=== PATIENT | female | born 1980 | race Caucasian/White ===

== ENCOUNTER 2019-07-12 06:47 | Emergency (ER) | payer SELFPAY ==
[2019-07-12] MEDS ORDERED: SODIUM CHLORIDE 0.9% 1000ML 1,000 ML IVS ONE (06:56)
[2019-07-12] MEDS ORDERED: PROMETHAZINE HCL INJ 25 MG in SODIUM CHLORIDE 0.9% 50ML 50 ML IVPB ONE (06:56)
[2019-07-12] MEDS ORDERED: ALUM & MAG HYDROX-SIMETHICONE 30 ML, LIDOCAINE VISCOUS 2% 15 ML PO ONE ×2 (06:56)
[2019-07-12] MEDS ORDERED: LIDOCAINE HCL 2% (MOUTH-THROAT) 15 ML UD ONE (06:58)
[2019-07-12] MEDS ORDERED: SODIUM CHLORIDE 0.9% 50ML 50 ML ONE (06:58)
[2019-07-12] MEDS ORDERED: PROMETHAZINE HCL INJ 25 MG/ML VIAL ONE (06:58)
[2019-07-12] MEDS ORDERED: ALUM & MAG HYDROX-SIMETHICONE 30 ML UD ONE (06:58)
--- NOTE | 2019-07-12 06:59 | ED.PDOC ---
History of Present Illness - General Source: patient Exam Limitations: no limitations - History of Present Illness Initial Comments: 2 days nv and ruq pain, hx of gb problems in the past. no fever. no blood in vomit. possible bile. no urinary symptoms. Timing/Duration: other Severity: moderate Improving Factors: nothing Worsening Factors: eating Associated Symptoms: loss of appetite, malaise, nausea/vomiting <Tan Norton - Last Filed: 07/12/19 06:56> <Basilio Quevedo - Last Filed: 07/12/19 10:58> - General Chief Complaint: Abdominal Pain Stated Complaint: Possible ruptured gallbladder Time Seen by Provider: 07/12/19 06:54 - History of Present Illness Allergies/Adverse Reactions: Allergies NSAIDs Allergy (Verified 07/12/19 06:54) Home Medications: Ambulatory Orders Prednisone [Deltasone] 20 mg PO Q24HR #5 tab 03/31/16 Review of Systems - Review of Systems Constitutional: States: malaise EENTM: States: no symptoms reported Respiratory: States: no symptoms reported Cardiology: States: no symptoms reported Gastrointestinal/Abdominal: States: abdominal pain, nausea, vomiting Genitourinary: States: no symptoms reported Musculoskeletal: States: no symptoms reported Skin: States: no symptoms reported Neurological: States: no symptoms reported Endocrine: States: no symptoms reported All other Systems: No Change from Baseline <Tan Norton - Last Filed: 07/12/19 06:56> Past Medical History (General) - Patient Medical History Hx Seizures: No Hx Stroke: No Hx Dementia: No Hx Asthma: No Hx of COPD: No Hx Cardiac Disorders: No Hx Congestive Heart Failure: No Hx Pacemaker: No Hx Hypertension: No Hx Thyroid Disease: No Hx Diabetes: No Hx Gastroesophageal Reflux: No Hx Renal Disease: No Hx Cancer: No Hx of HIV: No Hx Hepatitis C: No Hx MRSA: No - Vaccination History Hx Tetanus, Diphtheria Vaccination: Yes Hx Influenza Vaccination: No Hx Pneumococcal Vaccination: Yes - Social History Hx Tobacco Use: Yes Hx Alcohol Use: No Hx Substance Use: No Hx Substance Use Treatment: No Hx Depression: No - Female History Patient : No <Tan Norton - Last Filed: 07/12/19 06:56> Family Medical History - Family History Mother Family History: No Known <Tan Norton - Last Filed: 07/12/19 06:56> Physical Exam - Physical Exam General Appearance: Alert, No apparent distress Eye Exam: bilateral normal Ears, Nose, Throat: hearing grossly normal, normal ENT inspection Neck: full range of motion, supple Respiratory: lungs clear, normal breath sounds, no respiratory distress, no accessory muscle use Cardiovascular/Chest: normal peripheral pulses, regular rate, rhythm, no edema Peripheral Pulses: radial,right: 2+, radial,left: 2+ Gastrointestinal/Abdominal: soft, other - obese, ruq discomfort to palp Rectal Exam: deferred Back Exam: no CVA tenderness, no vertebral tenderness Extremity: normal range of motion, non-tender, normal inspection, no pedal edema, normal capillary refill Neurologic: access specialist II-XII nml as tested, alert, normal mood/affect, oriented x 3 Skin Exam: normal color <Errol,Tan L - Last Filed: 07/12/19 06:56> Progress - Progress Progress: DDx: Cholelithiasis, Cholecystitis, Biliary colic, Pancreatitis, Colitis, SBO, Pneumonia Patient presented with RUQ pain. Lab work was not suggestive of acute cholecystitis, pancreatitis, or hepatitis. Symptoms were not suggestive of GERD. Acute abdominal series was not significant for focal pneumonia or signs of SBO. RUQ ultrasound was significant for gallbladder wall thickening and gallstones. Dr. Sales was consulted due to patient's issues with pain control. After evaluation by Dr. Sales, plan was made for transfer to OR for cholecystectomy. 07/12/19 07:30 Introduced myself to patient and assumed care at 0700. Morphine ordered for pain. Pending ultrasound. 07/12/19 09:00 Discussed patient's ultrasound with Dr. Sales with general surgery. Will evaluate patient. Patient given 100mcg Fentanyl for persistent pain. 07/12/19 10:[address] Sales. Discussion for surgery. Will likely plan to proceed to OR. Will plan for admission pending OR schedule. 07/12/19 10:56 - Results/Orders Results/Orders: XR Abdomen: No air fluid levels. non-specific bowel gas pattern US RUQ: FINDINGS: Pancreas: Visualized portions of the pancreas are unremarkable. Bowel gas obscures some areas. Aorta/inferior vena cava: No aortic aneurysm. Normal inferior vena cava. Liver: The liver is coarse in texture with increased echogenicity consistent with diffuse hepatic steatosis. Liver length of 17.7 cm is near the upper limit of normal No focal liver lesion or intrahepatic bile duct dilatation. No liver surface irregularity. Normal garcia scale appearance of the portal vein and hepatic veins. No color flow obtainable in the main portal vein which may be technical. Gallbladder: Gallbladder appears normal in size with shadowing stones in the lumen. These appear to be freely mobile. One stone measures 1.9 cm. The others are smaller. The gallbladder wall is thickened 3.7 mm. Sonographic Charles sign was not recorded. For clinically equivocal cases, radionuclide hepatobiliary scan may be helpful. Common bile duct: Normal caliber measuring 5.8 mm. Right kidney: Renal length is 11.2 cm. Normal cortical echogenicity. Cortical thickness is normal. No hydronephrosis is seen. No renal mass or shadowing calculus. IMPRESSION: Gallstones with gallbladder wall thickening. Hyperechoic liver consistent with diffuse hepatic steatosis. 07/12/19 07:04 BLOOD CULTURE Stat Laboratory Results WBC 8.7 K/mm3 (4.8-10.8) 07/12/19 06:58 RBC 4.38 M/mm3 (4.20-5.40) 07/12/19 06:58 Hgb 13.3 gm/dL (12.0-16.0) 07/12/19 06:58 Hct 39.4 % (36.0-47.0) 07/12/19 06:58 MCV 89.8 fl (81.0-99.0) 07/12/19 06:58 MCH 30.4 pg (27.0-31.0) 07/12/19 06:58 MCHC 33.9 g/dL (33.0-37.0) 07/12/19 06:58 RDW 14.1 % (11.5-14.5) 07/12/19 06:58 Plt Count 414 K/mm3 (130-400) H 07/12/19 06:58 MPV 7.8 fl (7.40-10.4) 07/12/19 06:58 Absolute Neuts (auto) 6.20 K/uL (1.8-6.8) 07/12/19 06:58 Absolute Lymphs (auto) 1.80 K/uL (1.0-3.4) 07/12/19 06:58 Absolute Monos (auto) 0.50 K/uL (0.2-0.8) 07/12/19 06:58 Absolute Eos (auto) 0.20 K/uL (0.0-0.4) 07/12/19 06:58 Absolute Basos (auto) 0.10 K/uL (0.0-0.1) 07/12/19 06:58 Neutrophils % 70.5 % (42.0-78.0) 07/12/19 06:58 Lymphocytes % 20.7 % (20.0-50.0) 07/12/19 06:58 Monocytes % 5.5 % (2.0-9.0) 07/12/19 06:58 Eosinophils % 1.9 % (1.0-5.0) 07/12/19 06:58 Basophils % 1.4 % (0.0-2.0) 07/12/19 06:58 Sodium 136 mmol/L (135-145) 07/12/19 06:58 Potassium 3.8 mmol/L (3.6-5.0) 07/12/19 06:58 Chloride 99 mmol/L (101-111) L 07/12/19 06:58 Carbon Dioxide 24 mmol/L (21-31) 07/12/19 06:58 Anion Gap 16.8 (12-18) 07/12/19 06:58 BUN 7 mg/dL (7-18) 07/12/19 06:58 Creatinine 0.61 mg/dL (0.6-1.3) 07/12/19 06:58 BUN/Creatinine Ratio 11.5 (10-20) 07/12/19 06:58 Random Glucose 149 mg/dL (70-105) H 07/12/19 06:58 Serum Osmolality 272.7 mOsm/L (275-295) L 07/12/19 06:58 Lactic Acid 1.5 mmol/L (0.5-2.2) 07/12/19 06:58 Calcium 9.3 mg/dL (8.4-10.2) 07/12/19 06:58 Total Bilirubin 0.8 mg/dL (0.2-1.0) 07/12/19 06:58 AST 22 IU/L (10-42) 07/12/19 06:58 ALT 24 IU/L (10-60) 07/12/19 06:58 Alkaline Phosphatase 78 IU/L (42-121) 07/12/19 06:58 Serum Total Protein 7.8 gm/dL (6.4-8.2) 07/12/19 06:58 Albumin 3.6 g/dl (3.2-5.5) 07/12/19 06:58 Globulin 4.2 gm/dL (2.3-3.5) H 07/12/19 06:58 Albumin/Globulin Ratio 0.9 (1.1-1.9) L 07/12/19 06:58 Amylase 29 U/L (28-100) 07/12/19 06:58 Lipase 26 U/L (22-51) 07/12/19 06:58 Urine Color Yellow (Yellow) 07/12/19 08:35 Urine Appearance Clear (Clear) 07/12/19 08:35 Urine pH 7.0 (4.5-7.8) 07/12/19 08:35 Ur Specific [place] 1.010 (1.005-1.030) 07/12/19 08:35 Urine Protein Negative mg/dL 07/12/19 08:35 Urine Glucose (UA) Negative mg/dL (Negative) 07/12/19 08:35 Urine Ketones Negative mg/dL (NEGATIVE) 07/12/19 08:35 Urine Blood Negative (Negative) 07/12/19 08:35 Urine Nitrite Negative 07/12/19 08:35 Urine Bilirubin Negative (NEGATIVE) 07/12/19 08:35 Urine Urobilinogen 0.2 mg/dL (0.2-1.0) 07/12/19 08:35 Ur Leukocyte Esterase Negative (Negative) 07/12/19 08:35 Urine RBC 0 /hpf 07/12/19 08:35 Urine WBC 0 /hpf 07/12/19 08:35 Ur Epithelial Cells 1-3 /hpf 07/12/19 08:35 Urine Bacteria 0 07/12/19 08:35 Urine HCG, Qual Negative (NEGATIVE) 07/12/19 08:35 <Basilio Quevedo - Last Filed: 07/12/19 10:58> Departure <Tan Norton - Last Filed: 07/12/19 06:56> - Departure Time of Disposition: 10:56 Comments: Basilio Quevedo D.O. [id number] <Basilio Quevedo - Last Filed: 07/12/19 10:58> - Departure Clinical Impression: Cholelithiasis, Thickening of wall of gallbladder Abdominal pain Qualifiers: Abdominal location: right upper quadrant Qualified Code(s): R10.11 - Right upper quadrant pain Disposition: Admit Patient Condition: Good Departure Forms: ED Discharge - Pt. Copy, Patient Portal Self Enrollment Instructions: DI for Abdominal Pain-Adult Home Medications: Ambulatory Orders Prednisone [Deltasone] 20 mg PO Q24HR #5 tab 03/31/16
[2019-07-12] MEDS ORDERED: METOCLOPRAMIDE HCL INJ 10 MG/2 ML VIAL ONE (07:00)
[2019-07-12] MEDS ORDERED: DEXAMETHASONE INJ 10 MG/ML VIAL ONE (07:00)
[2019-07-12] MEDS ORDERED: ePHEDrine SULF 50 MG/ML ONE (07:00)
[2019-07-12] MEDS ORDERED: raNITIdine HCL INJ 25 MG/ML VIAL ONE (07:00)
[2019-07-12] MEDS ORDERED: ceFAZolin SODIUM 1 GM VIAL ONE (07:00)
[2019-07-12] MEDS ORDERED: PROPOFOL 200 MG/20 ML VIAL IV ONE (07:00)
[2019-07-12] MEDS ORDERED: LIDOCAINE 1% 10 ML VIAL INJ ONE (07:00)
[2019-07-12] MEDS ORDERED: MAGNESIUM SULFATE INJ 1 GM/2 ML VIAL ONE (07:00)
[2019-07-12] MEDS ORDERED: MORPHINE SULFATE INJ 10 MG/ML VIAL IV ONE (07:31)
--- NOTE | 2019-07-12 07:34 | RAD ---
EXAM: X-ray acute abdomen series CLINICAL DATA: 38-year-old female with nausea and vomiting x2 days TECHNICAL DATA: Three x-ray images of the chest and abdomen were performed including a PA radiograph of the chest as well as supine and upright views of the abdomen. This study was performed on 07/12/2019 at 7:01 AM. Comparison: None. FINDINGS: The lungs are well expanded. The cardiac silhouette is within normal limits. There is no focal consolidation, pleural effusion or pneumothorax. The costophrenic sulci are clear. The bowel gas pattern is nonspecific and nonobstructive. There is gaseous distention of several small bowel loops without evidence of bowel dilatation. There are small nondifferential air-fluid levels on the upright projection which may indicate a small bowel ileus and/or gastroenteritis. There is mild air and fecal residue scattered throughout the colon. The psoas margins are preserved. There is no evidence of free intraperitoneal air. No pathologic abdominal calcifications are identified. No focal soft tissue abnormalities are seen. IMPRESSION: 1. No evidence of acute intrathoracic disease.. 2. Gaseous distention of several small bowel loops with nondifferential air-fluid levels on the upright projection. Findings are nonspecific and could be related to a small bowel ileus and/or gastroenteritis. Electronically signed by: Nisha Grimaldo DO 07/12/2019 7:32 AM PROJECT PLANNER
--- NOTE | 2019-07-12 08:41 | US ---
EXAM DESCRIPTION: Abdomen,Limited CLINICAL HISTORY: nv 2 days, hx gb problems COMPARISON: None Available. TECHNIQUE: Right upper quadrant ultrasound FINDINGS: Pancreas: Visualized portions of the pancreas are unremarkable. Bowel gas obscures some areas. Aorta/inferior vena cava: No aortic aneurysm. Normal inferior vena cava. Liver: The liver is coarse in texture with increased echogenicity consistent with diffuse hepatic steatosis. Liver length of 17.7 cm is near the upper limit of normal No focal liver lesion or intrahepatic bile duct dilatation. No liver surface irregularity. Normal garcia scale appearance of the portal vein and hepatic veins. No color flow obtainable in the main portal vein which may be technical. Gallbladder: Gallbladder appears normal in size with shadowing stones in the lumen. These appear to be freely mobile. One stone measures 1.9 cm. The others are smaller. The gallbladder wall is thickened 3.7 mm. Sonographic Charles sign was not recorded. For clinically equivocal cases, radionuclide hepatobiliary scan may be helpful. Common bile duct: Normal caliber measuring 5.8 mm. Right kidney: Renal length is 11.2 cm. Normal cortical echogenicity. Cortical thickness is normal. No hydronephrosis is seen. No renal mass or shadowing calculus. IMPRESSION: Gallstones with gallbladder wall thickening. Hyperechoic liver consistent with diffuse hepatic steatosis. Electronically signed by: Dipak Ball MD 07/12/2019 8:40 AM FUNERAL HOME ASSOCIATE
[2019-07-12] MEDS ORDERED: fentaNYL CITRATE INJ 50 MCG/ML AMP IV ONE (08:55)
[2019-07-12] MEDS ORDERED: BUPIVACAINE 0.25% W/EPI 50 ML VIAL INJ ONE ×2 (11:16→11:43)
[2019-07-12] MEDS ORDERED: HEPARIN SODIUM (PORCINE) 10,000 UNITS/ML VIAL ONE (11:17)
[2019-07-12] MEDS ORDERED: LACTATED RINGERS 1,000 ML ONE (11:22)
[2019-07-12] MEDS ORDERED: KETAMINE HCL 100 MG/ML VIAL ONE (11:23)
[2019-07-12] MEDS ORDERED: MIDAZOLAM INJ 2 MG/2 ML VIAL ONE (11:23)
[2019-07-12] MEDS ORDERED: fentaNYL CITRATE INJ 50 MCG/ML AMP ONE (11:23)
[2019-07-12] MEDS ORDERED: SUGAMMADEX SODIUM 200 MG/2 ML VIAL IV ONE (11:24)
[2019-07-12] MEDS ORDERED: ROCURONIUM BROMIDE 10 MG/ML VIAL ONE (11:24)
[2019-07-12] MEDS ORDERED: HEPARIN SODIUM (PORCINE) 10,000 UNITS/ML VIAL IRRIG ONE (11:43)
[2019-07-12] MEDS ORDERED: ELECTROLYTE-A 1,000 ML IVS ONE (12:32)
[2019-07-12] MEDS ORDERED: HYDROmorphone HCL INJ 2 MG/ML VIAL ONE (15:02)
--- NOTE | 2019-07-12 16:14 | OP ---
PREOPERATIVE DIAGNOSIS: 1. Right upper quadrant pain. 2. Cholelithiasis. 3. Fatty infiltration of liver. POSTOPERATIVE DIAGNOSIS: 1. Right upper quadrant pain. 2. Cholelithiasis. 3. Fatty infiltration of liver. 4. Subacute cholecystitis. PROCEDURE: 1. Laparoscopic cholecystectomy with intraoperative cholangiography using fluoroscopy. 2. Wedge biopsy, right lobe, liver. SURGEON: Aashish Sales MD ANESTHESIA: Local infiltration 0.25% Marcaine with epinephrine and general endotracheal anesthesia. INDICATION FOR SURGERY: The patient is a 38 year-old female who has had a 4-day history acutely of an abdominal crampy pain, nausea and vomiting despite being quite careful with her food. She states she has had symptoms like this ongoing for approximately 10 years. There is no history of hepatitis or jaundice. Her mother did have a cholecystectomy. There is no fever or chills, change in her bowel habits, melanotic stools, blood per rectum or hematemesis. The risks, benefits, and alternatives to cholecystectomy were discussed and accepted by the patient and her after an ultrasound revealed gallstones. FINDINGS: The gallbladder wall was thickened, edematous and especially at the neck of the gallbladder. The cystic duct was identified, cannulated and cholangiography revealed free flow into the duodenum with no filling defects or strictures noted. No other pathology was identified. There were adhesions from the midline below the umbilicus. DESCRIPTION OF PROCEDURE: After the patient was transferred from the Emergency Room to the operating room and placed in the supine position, she underwent general endotracheal anesthesia. She was then prepped and draped in the usual sterile manner. Two grams of Ancef was given. Surgical time-out was taken. At this point, a supraumbilical vertical incision was made first with local infiltration of anesthesia, then with a sharp knife. Dissection was carried down through the skin and subcutaneous tissue down to the midline fascia. Traction sutures were placed on either side of the midline. A small incision was made in the midline fascia and the peritoneum was opened bluntly. Estella trocar was introduced under direct vision into the abdominal cavity and fixed in place with a 20 mL balloon. At this time, CO2 was insufflated until a pressure of 12 mmHg was reached and the abdomen was tympanitic in all four quadrants. The laparoscope was introduced and the abdomen was inspected with the previously noted findings. The patient was then placed in reverse Trendelenburg position and turned to the left side. The upper abdominal ports were placed under direct vision. Attempts were made to grasp the gallbladder were quite tense so a needle was introduced and over 60 mL of thick, while bile was identified and removed. When this was done, the gallbladder was grasped, retracted anteriorly and laterally. The neck of the gallbladder was identified and retracted laterally. The triangle of Calot was then explored with some difficulty due to the edema in this area, eventually the cystic was identified. It was clipped proximally, a small incision was made in the cyst duct. The cholangiogram catheter was introduced through a separate stab wound in the right upper quadrant, introduced into the cystic duct and clipped in place. Cholangiograms were then taken using fluoroscopy which revealed free flow into the duodenum with no filling defects or strictures noted. When this was done, the cystic duct catheter was removed. The cystic duct was hemoclipped three times distally and divided between the hemoclips. The cystic artery was identified, clipped and divided. The gallbladder was then dissected free from the gallbladder bed of the liver using electrocautery. There were some areas of leakage, it was placed in an EndoCatch bag and removed from the supraumbilical port site in the usual manner under direct vision. When this was done, the subhepatic space and subphrenic space were irrigated copiously with saline. A small amount of clots were removed. There was no active bleeding from the gallbladder bed of the liver so at this point, the cautery was turned up to 50 on coag and scissors were used to take a wedge biopsy, the right lobe of the liver medial to the gallbladder fossa. When this specimen was removed, hemostasis was obtained with electrocautery and hemostasis was noted to be adequate. Again, the subhepatic space, the subphrenic space were irrigated copiously with saline3. The effluent was essentially clear with no active bleeding or bile leak was identified in the gisela hepatis. At this point, the upper abdominal ports were removed under direct vision, hemostasis was noted to be adequate, so the CO2, the laparoscope and the infraumbilical port were removed. The supraumbilical port site fascia was approximated with 2 [id number]-dd-[id number] sutures of #0 Vicryl. Subcutaneous tissue was irrigated with saline. Skin edges were approximated with #4-0 Vicryl subcuticular sutures, benzoin and Steri-Strips. Sterile dressings were applied. The patient was awakened and taken to the Recovery Room in good and stable condition. Estimated blood loss was likely 100 mL. All sponge, needle and instrument counts were correct. #[id number] [facility]
[2019-07-12 16:28] VITALS: BP 153/83; TEMP 97.5; O2SAT 95
--- NOTE | 2019-07-14 02:52 | RAD ---
EXAM: Fluoroscopic intraoperative cholangiogram CLINICAL INDICATION: 38-year-old female with a history of gallstones TECHNIQUE: Two digital fluoroscopic images were obtained during an intraoperative cholangiogram. Total fluoroscopy time was 14.0 seconds. COMPARISONS: Limited abdominal ultrasound performed on 07/12/2019 FINDINGS: Two digital fluoroscopic images of the right upper quadrant were obtained during an intraoperative cholangiogram. A radiologist was not present during the examination. The initial image reveals cannulation of the cystic duct with opacification of the common bile duct which tapers distally and partial contrast opacification of the descending duodenum. The second image reveals further opacification of the common bile duct and proximal intrahepatic bile ducts. Again, there is tapering of the distal common bile duct and partial opacification of the duodenum. No definite intraluminal filling defects are identified. No extravasation of contrast is identified. IMPRESSION: 1. Intraoperative cholangiogram reveals patency of the common bile duct and normal tapering of the distal duct without definite intraluminal filling defects to suggest retained stones or obstruction. 2. No definite extravasation of contrast is identified. Electronically signed by: Nisha Grimaldo DO 07/14/2019 2:51 AM INORGANIC CHEMISTRY PROFESSOR
== END 2019-07-12 16:20 | disposition home or self-care (01) ==
LOC: ER 06:47
DX: K80.20 Calculus of gallbladder without cholecystitis without obstruction (principal); R11.2 Nausea with vomiting, unspecified; Z88.6 Allergy status to analgesic agent; Z87.891 Personal history of nicotine dependence
CPT/HCPCS: 36415; 74019; 74300; 76775; 80053; 81001; 81025; 82150; 83605; 83690; 84443; 85025; 87040; A4216; J0690; J1100; J1170; J1644; J2250; J2270; J2550; J2765; J2780; J3010; J3475; J3490; J7030; J7120